=== PATIENT | male | born 1955 | race African-American/Black ===

== ENCOUNTER 2017-05-27 23:26 | Emergency (ER) | payer MEDICAID ==
[~2017-05-27] VITALS: Ht 175.3 cm; Wt 127.0 kg
[~2017-05-27 23:26] MED LIST: ARIP30TA2; ASPI-1159 PO; ATOR10TA; ATOR10TA69 PO; DIVA250T4; FURO-151 PO; GABA800T97 PO; HYDR-3927; LORA2TAB2; METF500T4 PO; ZOLP10TA6 PO
[2017-05-27 23:30] VITALS: BP 144/80
== END 2017-05-28 04:05 | disposition left against medical advice (07) ==
LOC: ER 23:26
DX: Z53.21 Procedure and treatment not carried out due to patient leaving prior to being seen by health care provider (principal)

== ENCOUNTER 2023-10-18 00:43 | Emergency (ER) | payer MEDICAID, MEDICARE ==
[~2023-10-18] VITALS: Ht 172.7 cm; Wt 131.0 kg
[~2023-10-18 00:43] MED LIST changes: -ASPI-1159 PO; +ASPI-1497 PO; +METF-414 PO; -METF500T4 PO
[2023-10-18 01:05] VITALS: BP 163/101; PULSE 99; RESP 18; TEMP 98.6; O2SAT 99
[2023-10-18] MEDS ORDERED: ACETAMINOPHEN 325MG TABLET PO ONE (01:45)
== END 2023-10-18 12:58 | disposition left against medical advice (07) ==
LOC: ER 01:01
DX: R60.0 Localized edema (principal); E11.9 Type 2 diabetes mellitus without complications; E78.00 Pure hypercholesterolemia, unspecified; I10 Essential (primary) hypertension
CPT/HCPCS: 99281